=== PATIENT | female | born 1970 | race Hispanic/Latino ===

== ENCOUNTER 2024-07-25 13:33 | Outpatient (CLI) | payer BC | END 2024-07-25 13:34 | disposition home or self-care (01) | LOC: SCSMRI 13:33 | PROVIDERS: ATTEND Family Medicine | DX: G43.909 Migraine, unspecified, not intractable, without status migrainosus (principal); R55 Syncope and collapse; R56.9 Unspecified convulsions; J34.89 Other specified disorders of nose and nasal sinuses | CPT/HCPCS: 36415; 70553; 76376; 82565 ==